=== PATIENT | female | born 1950 | race Caucasian/White ===

== ENCOUNTER 2025-04-07 14:58 | Outpatient (CLI) | payer MEDICARE, BC, SELFPAY ==
--- NOTE | 2025-04-07 15:00 | CT_ITS ---
Patient: BRIAN CAMPOS Facility:?[facility] Patient ID:?[id number] Site Patient ID:?[id number]. Site :?[id number] Study:?CT-Chest WITHOUT-04/07/2025 3:12:51 PM Ordering Physician:?CASSIDY SOTELO Final Report: INDICATION: Atypical chest pain.. TECHNIQUE: CT chest without contrast. COMPARISON: None. FINDINGS: No consolidation. Mild biapical scarring. No pulmonary edema. 6 millimeter pleural left lower lobe nodule (61). 4 millimeter pleural left lower lobe nodule (72). Other smaller nodules are noted. No pleural effusion or pneumothorax. No mediastinal or hilar lymphadenopathy. The heart is normal in size. Significant coronary calcification. Trace pericardial effusion. Motion within the aortic root. This limits evaluation. The ascending aorta is not aneurysmal. No axillary lymphadenopathy. No gross chest wall mass or significant inflammatory fat stranding. Images of the upper abdomen are unremarkable. Bone windows demonstrate no suspicious lytic or sclerotic lesion. No acute fracture. IMPRESSION: 1. Significant coronary calcification. 2. No gross acute pulmonary abnormality. 3. Pulmonary nodules measuring up to 6 millimeters. Recommend follow-up chest CT in 6 months as per Fleischner criteria. Please note that all CT scans at this facility use dose modulation, iterative reconstruction, and/or weight-based dosing when appropriate to reduce radiation dose to as low as reasonably achievable. Dictated by Jose Ahn MD @ 04/12/2025 10:43:03 AM (Electronic Signature)
== END 2025-04-07 14:59 | disposition home or self-care (01) ==
LOC: CT 15:00
PROVIDERS: PCP Family Medicine; Visit Provider Internal Medicine Pulmonary Disease
DX: R07.89 Other chest pain (principal); R91.8 Other nonspecific abnormal finding of lung field
CPT/HCPCS: 71250

== ENCOUNTER 2025-10-01 13:09 | Emergency (ER) | payer MEDICARE, BC, SELFPAY ==
--- OUTSIDE RECORDS SUMMARY | 2023-03-22 06:20 | XMS_ITS | Continuity of Care Document ---
Author Organization [facility] Address [address] [address] [place] [address] Phone Care Team Providers Care Pain Management Nurse Practitioner Name Role Phone Avinash Blackburn MD, William Laurent Unavailabl e Advance Directives Directive Yes / No Effective Date File Name No Information Encounters Encounter Description Practice Location Reason(s) For Visit Diagnoses Date Provider Providers Copied on Encounter [facility], [address] [address], [place], [place], [id number], [place] tel:[phone] [facility] No Information Avinash Thomas. [address] [facility], [facility] [address], [place], [place], [id number], [place]. tel:[phone] Family History Family Member Type Diagnosis Age At Onset No Information Payers Payer name Insurance type Covered constitution party ID Authoriza tion(s) No Information Social History Type Description Quantity Date Captured Comments Sex Female Smoking Status No Information Chief Complaint And Reason For Visit No Information Reason For Referral Reason For Referral No Information History Of Present Illness Encounter Date Complaint History Of Prese nt Illness No Information Functional Status Date Functional Assessmen t No Information Instructions Date Instruction Additional Infor mation No Information Assessments Type Assessment Date No Information Patient Care Teams Name Effective Dates (start - stop) Status Members No Information
--- OUTSIDE RECORDS SUMMARY | 2025-08-17 08:11 | XMS_ITS | Encounter Summary ---
Author Organization [facility] Address [address] [place] [address] Care Team Providers Care Supply Technician Name Role Phone Elsewhere, Pcp Primary Care Provider Unavailabl e Reason for Referral * Cardiovascular-Diagnostic (Routine) - ClosedSpecialtyDiagnoses / Procedures Referred By ContactReferred To Contact Diagnoses Pain Chest Procedures Echo Transthoracic (TTE) Helena Tate M.B.B.S., Ph.D. [address] [place] [address] Phone: tel: fax: [facility] Referral IDStatusReasonStart DateExpiration DateVisits RequestedVisits [id number]/15/202512/16/202611 WEAVER HELPER Reason for Visit * Cardiovascular-Diagnostic (Routine) - ClosedSpecialtyDiagnoses / Procedures Referred By ContactReferred To Contact Diagnoses Pain Chest Procedures Echo Transthoracic (TTE) Helena Tate M.B.B.S., Ph.D. [address] [place] [phone] Phone: tel: fax: [facility] Referral IDStatusReasonStart DateExpiration DateVisits RequestedVisits [id number]/15/202512/16/202611 Encounter Details DateTypeDepartmentCare Team (Latest Contact Info)Mksasdvyuui20/11/2025 8:11 AM WIRE WEAVER HELPER - 08/17/2025 11:59 PM CSTHospital Encounter Department of Cardiovascular Diseases in [place], [place] [address] [place] [address] Helena Tate M.B.B.S., Ph.D. [address] [place] [address] Pain Chest Discharge Disposition: Home or Self Care Social History Tobacco UseTypesPacks/DayYears UsedDateSmoking Tobacco: NeverSmokeless Tobacco: NeverAlcohol UseStandard Drinks/WeekCommentsNot Currently0 (1 standard drink = 0.6 oz pure alcohol)Hunger Vital SignAnswerDate RecordedWithin the past 12 months, you worried that your food would run out before you got the money to buy more.Never true06/20/2025Within the past 12 months, the food you bought just didn't last and you didn't have money to get more.Never true06/20/2025PRAPARE - TransportationAnswerDate RecordedIn the past 12 months, has lack of transportation kept you from medical appointments or from getting medications?No 06/20/2025In the past 12 months, has lack of transportation kept you from meetings, work, or from getting things needed for daily living?No06/20/2025HC UtilitiesAnswerDate RecordedIn the past 12 months has the electric, gas, oil, or water company threatened to shut off services in your home?No06/20/2025Housing StabilityAnswerDate RecordedWhat is your living situation today?I have a steady place to live06/20/2025CommentsUnknownSex and Gender InformationValue Date RecordedSex Assigned at IvzddJnmouz69/14/2025 1:32 PM CDTLegal SexFemale 11/08/2016 5:07 AM CSTGender CwpglqkcSdhogi88/14/2025 1:32 PM CDTSexual JjzalhrdepoGvydydwl50/14/2025 1:32 PM CDTdocumented as of this encounter Functional Status * Fall RiskQuestionAnswerDate of AssessmentAuthorHave you fallen within the last year or do you fear you might fall?No08/17/2025 8:10 AM Angle Garvey you use an assisted device to walk? (Walker, cane, wheelchair, crutch)No 08/17/2025 8:10 AM Angle Garvey, do you feel any of the following? Weak, dizzy, shaky, or unsteady?No08/17/2025 8:10 AM Angle Garvey you taken any medication within the last 6 hours which may make you feel drowsy? Such as sleep, pain, or anxiety bcybatqyfuJi58/11/2025 8:10 AM Angle Garvey documented as of this encounter Medications at Time of Discharge MedicationSigDispense QuantityRefillsLast FilledStart DateEnd Date aspirin [address] tablet Take 1 tablet (81 mg total) by mouth daily. 90 tablet calcium citrate-vitamin D3 500 mg-12.5 mcg /5 gram powder in packet Take 1 tablet by mouth 2 (two) times a day.12/29/2015 docusate sodium (Colace) 100 mg capsule Take 100 mg by mouth 3 (three) times a day.10/23/2016 lactase (Lactase Fast Acting) 9,000 Unit tablet Take 1 tablet by mouth as needed.11/22/2016 lamoTRIgine (LaMICtaL) 100 mg tablet Take 100 mg by mouth daily. 3 tablets in the a.m. and 3 tablets in the p.m. levETIRAcetam (Keppra) 500 mg tablet Take 500 mg by mouth daily. Takes 2.5 tablets in the a.m., takes 3 tablets in the p.m.10/16/2016 levothyroxine 50 mcg tablet Take 50 mcg by mouth daily.10/16/2016 multivitamin tablet Take 1 tablet by mouth daily.12/29/2015 polyethylene glycol (Miralax) 17 gram/dose oral powder Take 17 g by mouth 2 (two) times a day.10/16/2016 rosuvastatin (Crestor) 5 mg tablet Take 1 tablet (5 mg total) by mouth daily. 90 tablet traZODone (DesyreL) 100 mg tablet Take 200 mg by mouth at bedtime.03/23/2025 isosorbide mononitrate (Imdur) 30 mg 24 hr tablet Take 1 tablet (30 mg total) by mouth daily. 90 tablet 5111/03/2024documented as of this encounter Plan of Treatment Not on file documented as of this encounter Procedures Procedure NamePriorityDate/TimeAssociated DiagnosisComments(TTE) 2D ECHO DOPPLER ODXBQUgxmvlt93/11/2025 9:33 AM WIRE WEAVER HELPER Pain Chest documented in this encounter Results * (TTE) 2D ECHO DOPPLER COLOR (08/17/2025 9:33 AM WIRE WEAVER HELPER)ComponentValueRef Range Test MethodAnalysis TimePerformed AtPathologist SignatureEjection Dnwkxcvx97XJ CV EIMSSinus of Ekwooxvc57AB CV EIMSMid-Ascending Thphx85ZF CV EIMSLV Mass Wtqkp98EN CV EIMSLV End-Diastolic Fyslytlc30WG CV EIMSLV End-Systolic Diameter 31MC CV EIMSLV End-Diastolic Fmpheu494QR CV EIMSLV End-Systolic Lyhiyi60ZR CV EIMSMV E Velocity0.6MC CV EIMSMV A Velocity0.4MC CV EIMSMV E/A1.5MC CV EIMSMV e' Velocity Medial0.07MC CV EIMSMV e' Velocity Lateral0.09MC CV EIMSMV E/e' Medial8.6MC CV EIMSMV E/e' Lateral6.7MC CV EIMSLeft ventricular stroke volume axuna40KR CV EIMSCardiac Output3.46MC CV EIMSCardiac Index2.37MC CV EIMSLV Global Longitudinal Strain-21MC CV EIMSLV Interventricular Septal Wall Vontsqjxx5QB CV EIMSLV Posterior Wall Izqlkeacf1RZ CV EIMSLV Relative Wall Qxcqpoazn23RH CV EIMSTricuspid Annular S???0.14MC CV EIMSTR Vmax2.09MC CV EIMS Estimated RA Pressure (Echo RAP)5MC CV EIMSRV Systolic Pressure (with Echo RAP)22MC CV EIMSAV mean cnezpdfk0RP CV EIMSAortic valve area2.83MC CV EIMS Aortic Valve Dimensionless Index0.9MC CV EIMSLA Volume Hrcrg21ZU CV EIMSAortic Valve Systolic Peak Velocity0.9MC CV EIMSAnatomical RegionLateralityModality EchocardiographySpecimen (Source)Anatomical Location / LateralityCollection Method / VolumeCollection TimeReceived Time08/17/2025 8:30 AM WIRE WEAVER HELPER Impressions 08/17/2025 9:48 AM WIRE WEAVER HELPER There are no previous [facility] echocardiograms available for comparison. LEFT VENTRICLE:Normal left ventricular chamber size. Normal left ventricular geometry. Calculated 2-D biplane volumetric left ventricular ejection fraction of 58%. Global averaged left ventricular longitudinal peak systolic strain is normal at -21% (normal = more negative than -18%). No regional wall motion abnormalities. Normal left ventricular diastolic function. RIGHT VENTRICLE:Normal right ventricular chamber size by visual estimate. Normal right ventricular systolic function. Right ventricular systolic pressure 22 mmHg (right atrial pressure of 5 mmHg). ATRIA:Normal left atrial size. Left atrial volume index 24 ml/m2. Normal right atrial size. CARDIAC VALVES:Trileaflet aortic valve. Sclerotic aortic valve. No aortic valve regurgitation. Normal mitral valve. Trivial mitral valve regurgitation. Pulmonary valve not well visualized. Normal pulmonary valve systolic velocities. Trivial pulmonary valve regurgitation. Normal tricuspid valve. Mild tricuspid valve regurgitation. OTHER ECHO FINDINGS:Normal inferior vena cava size with normal inspiratory collapse (>50%). Normal sinus of Valsalva diameter of 34 mm. Normal mid ascending aorta diameter of 34 mm. Abdominal aorta incompletely visualized. Normal abdominal aorta Doppler flow pattern. Imaging inadequate for detection of atrial level shunt by color flow imaging. No intracardiac mass or thrombus, but the left atrial appendage cannot be visualized adequately with transthoracic echo to exclude thrombus in this location. No ?? pericardial effusion. For the complete report, see the Order-Level Documents. Narrative 08/17/2025 9:48 AM WIRE WEAVER HELPER For the complete report, see the Order-Level Documents. Hemodynamics Heart Rate: 62 BPM Blood Pressure: 147 / 75 mmHg ECG: Sinus rhythm Final Impressions 1. Normal left ventricular chamber size, no regional wall motion abnormalities, calculated 2-D biplane volumetric ejection fraction of 58%, global averaged longitudinal peak systolic strain is normalat -21% (normal = more negative than -18%). 2. Normal left ventricular geometry, normal diastolic function. 3. Normal right ventricular chamber size, normal systolic function, right ventricular systolic pressure 22 mmHg (right atrial pressure of 5 mmHg). 4. No hemodynamically significant valvular heart disease. 5. Normal ascending aorta diameter. 6. Normal inferior vena cava size with normal inspiratory collapse (>50%). 7. No ??pericardial effusion. 8. There are no previous [facility] echocardiograms available for comparison. Procedure Note Cass Amaro M.D., Pharm.D. - 08/17/2025 For the complete report, see the Order-Level Documents. Hemodynamics Heart Rate: 62 BPM Blood Pressure: 147 / 75 mmHg ECG: Sinus rhythm Final Impressions 1. Normal left ventricular chamber size, no regional wall motionabnormalities, calculated 2-D biplane volumetric ejection fraction of 58%,global averaged longitudinal peak systolic strain is normal at -21%(normal = more negative than -18%). 2. Normal left ventricular geometry, normal diastolic function. 3. Normal right ventricular chamber size, normal systolic function, right ventricular systolic pressure 22 mmHg (right atrial pressure of 5 mmHg). 4. No hemodynamically significant valvular heart disease. 5. Normal ascending aorta diameter. 6. Normal inferior vena cava size with normal inspiratory collapse(>50%). 7. No pericardial effusion. 8. There are no previous [facility] echocardiograms available forcomparison. Findings There are no previous [facility] echocardiograms available forcomparison. LEFT VENTRICLE:Normal left ventricular chamber size. Normal leftventricular geometry. Calculated 2-D biplane volumetric left ventricularejection fraction of 58%. Global averaged left ventricular longitudinalpeak systolic strain is normal at -21% (normal = more negative than -18%).No regional wall motion abnormalities. Normal left ventricular diastolicfunction. RIGHT VENTRICLE:Normal right ventricular chamber size by visual estimate.Normal right ventricular systolic function. Right ventricular systolicpressure 22 mmHg (right atrial pressure of 5 mmHg). ATRIA:Normal left atrial size. Left atrial volume index 24 ml/m2. Normalright atrial size. CARDIAC VALVES:Trileaflet aortic valve. Sclerotic aortic valve. No aorticvalve regurgitation. Normal mitral valve. Trivial mitral valveregurgitation. Pulmonary valve not well visualized. Normal pulmonary valvesystolic velocities. Trivial pulmonary valve regurgitation. Normaltricuspid valve. Mild tricuspid valve regurgitation. OTHER ECHO FINDINGS:Normal inferior vena cava size with normal inspiratory collapse (>50%). Normal sinus of Valsalva diameter of 34 mm. Normal midascending aorta diameter of 34 mm. Abdominal aorta incompletelyvisualized. Normal abdominal aorta Doppler flow pattern. Imaginginadequate for detection of atrial level shunt by color flow imaging. Nointracardiac mass or thrombus, but the left atrial appendage cannot bevisualized adequately with transthoracic echo to exclude thrombus in thislocation. No pericardial effusion. For the complete report, see the Order-Level Documents. Authorizing ProviderResult TypeResult StatusHelena Crowe, Ph.D.CV ECHO PROCEDURESFinal Result documented in this encounter Visit Diagnoses Diagnosis Pain Chest documented in this encounter Care Teams Team MemberRelationshipSpecialtyStart DateEnd Date Elsewhere, Pcp PCP - GeneralInternal Medicine06/18/25documented as of this encounter
--- OUTSIDE RECORDS SUMMARY | 2025-09-03 07:30 | XMS_ITS | Encounter Summary ---
Author Organization [facility] Address [address] [place] [address] Care Team Providers Care Sheepskin Pickler Name Role Phone Elsewhere, Pcp Primary Care Provider Unavailabl e Reason for Visit * ReasonCommentsFatigue Encounter Details DateTypeDepartmentCare Team (Latest Contact Info)Uzdcvnzxtvj52/28/2025 7:30 AM CSTNurse Only [facility] [place], [place] [address] [place] [address] Neelam Garcia, RChristyN. [address] [place] [phone] Fatigue Social History Tobacco UseTypesPacks/DayYears UsedDateSmoking Tobacco: NeverSmokeless [...] threatened to shut off services in your home?No06/20/2025 DepressionAnswerDate RecordedPHQ-9 Total Score (max 27) Housing StabilityAnswerDate RecordedWhat is your living situation today?I have a steady place to live06/20/2025CommentsUnknownSex and Gender Information ValueDate RecordedSex Assigned at XwoosXjdtdo44/14/2025 1:32 PM CDTLegal Sex Hfytqk1311/08/2016 5:07 AM CSTGender JiuscukaFvwcay27/14/2025 1:32 PM CDTSexual KpnlyciaahaTiuhxbvy46/14/2025 1:32 PM CDTdocumented as of this encounter Functional Status * PHQ-9 InterpretationAnswerDate of AssessmentAutrNone to minimal depression 09/02/2025 1:59 PM Neelam Brown R.N. * PHQ BACKGROUND SCOREAnswerDate of AssessmentAutr- 1:59 PM Neelam De Jesus, R.N. * Little interest or pleasure in doing thingsAnswerDate of AssessmentAuthor0 09/02/2025 1:59 PM Neelam Brown, R.N. * Feeling down, depressed, or hopelessAnswerDate of SipmlnocgqAddfji403/27/2025 1:59 PM Neelam Brown, R.N. * Trouble falling or staying asleep, or sleeping too muchAnswerDate of TqhoilhrcgXnwjiu075/27/2025 1:59 PM Neelam Brown, R.N. * Feeling tired or having little energyAnswerDate of RzwinasrqgXpbohp563/27/2025 1:59 PM Neelam Brown, R.N. * Poor appetite or overeatingAnswerDate of WdrkkmlqrtXdevnm651/27/2025 1:59 PM Neelam Brown, R.N. * Feeling bad about yourself - or that you are a failure or have let yourself or your family downAnswerDate of MjivpfrhtmHbkxae926/27/2025 1:59 PM Neelam Brown R.N. * Trouble concentrating on things, such as reading the newspaper or watching televisionAnswerDate of QigwxdlgquCljyxh322/27/2025 1:59 PM Neelam Brown R.N. * Moving or speaking so slowly that other people could have noticed? Or the opposite - being so fidgety or restless that you have been moving around a lot more than usualAnswerDate of IciypslrmqVgofbs040/27/2025 1:59 PM Neelam Brown R.N. * Thoughts that you would be better off or of hurting yourself in some way AnswerDate of IufwexabgkIpymad564/27/2025 1:59 PM Neelam Brown R.N. * PHQ-9 Total Score (max 27)AnswerDate of ShbkcdzsozOdmlvv773/27/2025 1:59 PM Neelam Brown R.N. * If you checked off any problems, how difficult have these problems made it for you to do your work,take care of things at home, or get along with other people?AnswerDate of AssessmentAuthorNot difficult at all09/02/2025 1:59 PM Neelam Brown R.N. * PHQ-2 ScoreAnswerDate of RgyyzknsbgVzysbt936/27/2025 1:59 PM Neelam Brown R.N. documented as of this encounter Progress Notes * Neelam Garcia R.N. - 09/03/2025 7:30 AM CST SUBJECTIVE CHIEF COMPLAINT / REASON FOR VISIT Mrs. Gutierrez is a 74 y.o. female who is alone and presents with chronic pain, fatigue, and unrefreshing sleep. This note is in collaboration with Joel Villa M.D (Chris). HISTORY OF PRESENT ILLNESS Patient reports a gradual onset of pain. Associated factors related to onset of symptoms may include exertion. She reports that she has had chest pain for years. She denies any injury. She reported that last year the chest pain has been worse. Muscle pain with exertion, walking and talking/ She used to like to swim for exercise 4 or 5 years ago, but had to stopped swimming and start walking. She reports heart pain or widespread muscle or even joint pain. She reports that the main reason she is here is for the chest discomfort with exertion. After talking, she will not be able to talk after 15minutes. She denies shortness of breath but it hurts to breathe. PAIN Patient has had complaints of pain in the past 7 days. Patient reports pain in: right shoulder, right hip/buttock, neck, and chest. She has chest pain/discomfort. Right shoulder due to overuse injuryfrom years ago. She has right sciatic pain and 2 surgeries for this in the early . It is not as bad as it was. She reports neck [pain but that is part of the radiating chest pain with exertion.And She has had pelvic floor dysfunction for years Pain has been present specific areas listed about with exertion over the past 8 years. The pain is described as intermittent with variable intensity with qualities of aching, sharpness, and radiates only the right side of her chest to throat that affects her voice and down to her abdomen that can affect bowel movements . Patient describes their pain level on a scale of 0-10 (with 0 being no pain and 10 being the worst pain imaginable) as a 2 or 3. Gradually worse over time. It is affecting morethings in her life. She can't talk to much or lifting and carrying groceries due to the weight. FATIGUE Patient reports no fatigue. Patient describes fatigue as denies. Patient rates today's fatigue level on a scale of 0-10 (with 0 being no fatigue and 10 being the worst fatigue imaginable) as a 0. Patient reports the degree of fatigue in the past week as none. Pain symptoms are aggravated by overexertion, physical activity, repetitive motion, and talking, orwalking for 15 to 20 minutes. She reported that she can not sing. OTHER FIBROMYALGIA OR CHRONIC FATIGUE ASSOCIATED SYMPTOMS The patient reports symptoms frequently experienced in the past 6 months: chest discomfort. SLEEP Patient has difficulties with sleep and reports unrefreshing sleep (reports severity as mild the past week), difficulty falling asleep, and difficulty staying asleep. Patient reports averaging 5 to 7hours of sleep nightly and lay down 30 minutes before supper and does not sleep. Patient has never had a sleep disorder consult. Patient reports the following criteria for restless legs syndrome: none of the four essential restless legs syndrome criteria. MEMORY Patient does not report difficulty with memory or concentration. Patient reports severity of cognitive symptoms of the past 7 days as none. MOOD Patient reports current stressors: chest pain main thing and it stops her from being productive around home. Patient does endorse symptoms or concerns with mood. Patient endorses symptoms of: frustration. Patient is currently diagnosed with: no diagnoses at this time. Patient is on the following mood medications: Lamictal or lamotrigine is prescribed for seizures. Current psychiatric follow-up includes: none. PHQ Score PHQ-9 Total Score (max 27): 2 PHQ Question 9: Thoughts that you would be better off or of hurting yourself in some way: Not at all Risk of suicide is not indicated. Patient reports experiencing no history of abuse or trauma. Patient currently reports feeling safe in their home. FUNCTIONAL STATUS Patient???s current functioning status: able to carry out limited activities of daily living. Patient's current employment status: retired. TREATMENTS Past treatments attempted include: relaxation, rest, heat or ice, and stretching or yoga. EXERCISE Patient has a current exercise routine, which includes stretching or walking unless her chest is irritated then she can't walk. She walks 20 to 30 minutes a most days of the week. MEDICATION HISTORY Patient has taken over the counter pain medications. Patient has previously used the following medications: trazodone or Desyrel, acetaminophen, and vitamin D3. SOCIAL HISTORY Marital Status: . Recent history of falls (past 3 months): none Caffeine use: none. The patient has family members with similar symptoms as the patient but haven't been diagnosed withfibromyalgia or chronic fatigue syndrome her father. OBJECTIVE NURSING ASSESSMENT Refer to [facility] for mood assessment. The patient has the following 2016 ACR Fibromyalgia criteria: Widespread Pain Index (0-19): 4 Number of Pain Regions (0-5): 3 Severity score (0-12): 1 FIQR (0-100): 19.33 Tender Points: 5/18 standard tender points are positive: left occiput, left trapezius, left scapular, left low cervical, left second rib. Symptoms have been present at a similar level for at least 3 months. The patient reports the following Chronic Fatigue criteria: none. ASSESSMENT / PLAN For diagnosis and treatment plan refer to provider's note. RETE WORKER documented in this encounter Plan of Treatment Not on file documented as of this encounter Visit Diagnoses Diagnosis Pain Chest- Primary documented in this encounter Additional Health Concerns AssessmentNoted TimePHQ-9 Depression Total Score: 1:59 PM CONCRETE WORKER documented as of this encounter Care Teams Team MemberRelationshipSpecialtyStart DateEnd Date Elsewhere, Pcp PCP - GeneralInternal Medicine06/18/25documented as of this encounter
--- OUTSIDE RECORDS SUMMARY | 2025-09-03 08:30 | XMS_ITS | Encounter Summary ---
Author Organization [facility] Address [address] [place] [address] Care Team Providers Care Agricultural Specialist Name Role Phone Elsewhere, Pcp Primary Care Provider Unavailabl e Reason for Visit * Outpatient (Routine) - ClosedSpecialtyDiagnoses / ProceduresReferred By ContactReferred To ContactIntegrative Medicine Diagnoses Fibromyalgia Helena Tate M.B.BChristyS., Ph.D. [address] [place] [phone] Phone: tel: fax: [facility] Referral IDStatusReasonStart DateExpiration DateVisits RequestedVisits [id number]/19/20253/ Encounter Details DateTypeDepartmentCare Team (Latest Contact Info)Lcllvbjuidp13/28/2025 8:30 AM CSTComprehensive Visit [facility] in [place], [place] [address] [place] [phone] Joel Villa M.D. [address] [place] [phone] Pain Thoracic Myofascial (Primary Dx); Other Chest Pain Social History Tobacco UseTypesPacks/DayYears UsedDateSmoking Tobacco: NeverSmokeless [...] and Gender Information ValueDate RecordedSex Assigned at OrfffIkktwc31/14/2025 1:32 PM CDTLegal Sex Cnoacu2411/08/2016 5:07 AM CSTGender IqblrzzuMwsfkx39/14/2025 1:32 PM CDTSexual BfjtjeaxipmUufhqhha59/14/2025 1:32 PM CDTdocumented as of this encounter Consult Notes * Joel Villa M.D. - 09/03/2025 8:30 AM CST REFERRAL SOURCE Helena Tate M.B.BChristyS., Ph.D. REASON FOR VISIT Fibromyalgia/chronic fatigue consultation SUBJECTIVE History of Present Illness Silvia Gutierrez is a 74-year-old female presenting for evaluation of exertional left-sided chest pain. Silvia reports left-sided chest pain that occurs exclusively with exertion, including walking and talking. Straining from BM's in the context of her pelvic floor dysfunction can also exacerbate symptoms. She also experiences throat discomfort that affects her voice after talking for about 15 minutes. The pain is rated 2-3/10 and is alleviated by rest, though it can take several days to fully resolve. She denies shortness of breath and fatigue, but notes that it hurts to breathe when the pain ispresent. She denies any widespread muscular or joint pain. There is no pain outside of exertion and the pain radiates but does not migrate. She has a history of pelvic floor dysfunction with difficulty emptying her bowels, sometimes requiring manual disimpaction, which she believes contributes to her chest and shoulder pain. She also hasa history of sciatica with 2 prior surgeries, which is not as severe as it used to be. She manages her sciatica with non-pharmacologic treatments including relaxation, rest, heat or ice, stretching, and yoga. She maintains an exercise routine of stretching and walking, aiming for 20-30 minutes most days of the week. However, she is limited by chest pain and sometimes cannot walk when her chest is irritated. She used to enjoy swimming for exercise 4-5 years ago but can no longer do so due to her symptoms. She reports poor sleep quality but wakes feeling rested and has good energy throughout the day. Shesometimes rests for about 30 minutes before supper but does not nap. She denies restless leg syndrome, memory or concentration problems, mood issues. She is frustrated by her chest pain, which limitsher productivity at home. She is retired, but not due to her symptoms. SShe was previously prescribed isosorbide mononitrate but discontinued it due to a pruritic, erythematous rash on her back. She has not tried NTG despite being recommended by cardiology as she has no Rx for this. She uses trazodone nightly for sleep, Tylenol for pain, and vitamin D supplementation. She has never used nitroglycerin. 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 She was told she did not need stents and that her symptoms were not cardiac in origin. See collaborative nursing note for full intake details. OBJECTIVE FINDINGS: Widespread Pain Index (WPI): 01/23, 12/09 pain regions Symptom Severity (SS): 10/18 Tender Points: 02/21 FIQR: 19 Results - (July) Cardiac catheterization: reviewed - Stress echocardiogram: reviewed - Overnight oximetry: Normal. - PHQ-9: 2. - GEORGES-7: 0. Assessment & Plan # Pain Thoracic Myofascial # Other Chest Pain Exertional, localized left-sided chest pain with radiation to the throat and abdomen, not consistent with fibromyalgia or costochondritis. Cardiac workup, including stress echocardiogram and angiogram, ruled out significant coronary artery disease; mild myocardial bridge noted in distal LAD. Differential includes myofascial or chest wall muscle pain versus atypical angina or small vessel disease. - Start trial of cyclobenzaprine 5 mg PO PRN for chest pain; instructed to use only when symptoms occur, not prophylactically. - Start sublingual nitroglycerin PRN for chest pain as recommended by cardiology. Did not have Rx, so Rx sent to local pharmacy for this. - Educated on potential side effects of cyclobenzaprine (sedation) and nitroglycerin (hypotension, dizziness); advised to avoid concurrent use with trazodone and to sit or lie down if lightheaded after nitroglycerin. - Advised to trial medications separately to assess efficacy; if nitroglycerin provides rapid relief, may indicate small vessel disease--if so, notify cardiology. - If cyclobenzaprine is effective, likely myofascial or muscle spasm etiology; if partial response,may consider dose increase to 10 mg. - If neither medication is effective, advised to notify - Continue follow-up with primary care as needed. 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
--- OUTSIDE RECORDS SUMMARY | 2025-10-01 13:11 | XMS_ITS | Clinical Summary ---
Author Organization [facility] Address [address] [place] [address] Care Team Providers Care Manager Meeting Name Role Phone Elsewhere, Pcp Primary Care Provider Unavailabl e Source Comments Patient records contain information from all sites at [facility]. For routine questions regarding patient records, call [phone] during business hours, M-F 8:00 AM - 5:00 PM Central Time. Record requests for emergency care only can be directed to [phone] at any time.[facility] Allergies Active AllergyReactionsCriticalityNoted UmclNmrikkudKlosqotgmzqHtem16/15/2018Peg 3350-TdxxhtbjfhgpPlunyaoKisp00/17/9804SlrihbnvmNyqi90/24/2016 Flu Like Symptoms Medications * This document contains information received from the source organization and may not represent a complete record from that organization. MedicationSigDispense QuantityRefillsLast FilledStart DateEnd DateStatus calcium citrate-vitamin D3 500 mg-12.5 mcg /5 gram powder in packet Take 1 tablet by mouth 2 (two) times a day.12/29/2015Active lactase (Lactase Fast Acting) 9,000 Unit tablet Take 1 tablet by mouth as needed.11/22/2016Active lamoTRIgine (LaMICtaL) 100 mg tablet Take 100 mg by mouth daily. 3 tablets in the a.m. and 3 tablets in the p.m. Active levETIRAcetam (Keppra) 500 mg tablet Take 500 mg by mouth daily. Takes 2.5 tablets in the a.m., takes 3 tablets in the p.m.10/16/2016Active levothyroxine 50 mcg tablet Take 50 mcg by mouth daily.10/16/2016Active multivitamin tablet Take 1 tablet by mouth daily.12/29/2015Active traZODone (DesyreL) 100 mg tablet Take 200 mg by mouth at bedtime.5Active docusate sodium (Colace) 100 mg capsule Take 100 mg by mouth 3 (three) times a day.10/23/2016Active polyethylene glycol (Miralax) 17 gram/dose oral powder Take 17 g by mouth 2 (two) times a day.10/16/2016Active rosuvastatin (Crestor) 5 mg tablet Take 1 tablet (5 mg total) by mouth daily. 90 tablet 5Active aspirin [address] tablet Take 1 tablet (81 mg total) by mouth daily. 90 tablet tive cyclobenzaprine (FlexeriL) 5 mg tablet Indications:Pain Thoracic MyofascialTake 1 tablet (5 mg total) by mouth 3 (three) times a day as needed for muscle spasms. 30 tablet 5Active nitroglycerin (Nitrostat) 0.4 mg SL tablet Indications:Pain Thoracic MyofascialPlace 1 tablet (0.4 mg total) under the tongue every 5 (five) minutes as needed for chest pain for up to 30 days. 30 tablet tive isosorbide mononitrate (Imdur) 30 mg 24 hr tablet Take 1 tablet (30 mg total) by mouth daily. 90 tablet Discontinued Active Problems ProblemNoted DateDiagnosed DatePain Chest07/16/2025 Encounters * This document contains information received from the source organization and may not represent a complete record from that organization. DateTypeDepartmentCare NsbdHhtzpvxhcxj09/06/2025Refill [facility] in [address] [address] Joel Villa M.D. Med Wfikoe5809/03/2025 8:30 AM CSTComprehensive Visit [facility] in [address] [address] Joel Villa M.D. Pain Thoracic Myofascial (Primary Dx); Other Chest Pain09/03/2025 7:30 AM CSTNurse Only [facility] [place], [place] [address] [place] [address] Neelam Garcia R.N. Sbnqepo7508/20/2025Results Follow-Up Department of Cardiovascular Medicine in [place], [place] [address] [place] [phone] Helena Tate M.B.BRonit, Ph.D. Echo Transthoracic (TTE)08/17/2025 8:11 AM MOTOR MAN - 08/17/2025 11:59 PM CSTHospital Encounter Department of Cardiovascular Diseases in [place], [place] [address] [place] [phone] Helena Tate M.B.B.S., Ph.D. Pain Chest Discharge Disposition: Home or Self Care07/19/2025 4:49 PM CDT - 07/19/2025 6:04 PM CDTSurgery Division of Cardiovascular Diseases in [place], [place] [address] [place] [phone] Davian Keith M.D. Coronary Aqngpuexyet89/13/2025 12:33 PM CDT - 07/19/2025 9:12 PM CDTHospital Encounter Division of Cardiovascular Diseases in [place], [place] [address] [place] [phone] Helena Tate M.B.B.S., Ph.D. Pain Chest Discharge Disposition: Home or Self Care07/16/2025 12:30 PM CDTDiagnostic Division of Pulmonary Medicine in [place], [place] [address] [place] [phone] Helena Tate M.B.B.S., Ph.D. Pain Chest; Atherosclerotic Heart Disease [place] Coronary Artery With Other Forms Angina Pectoris (Angina Equivalent); Gtdigpufvscz17/10/2025 11:07 AM CDT - 07/16/2025 11:59 PM CDTHospital Encounter Department of Laboratory Medicine and Pathology, [facility] in [place], [place] [address] [place] [phone] Helena Tate M.B.BCheri., Ph.D. Fibromyalgia; Pain Chest; Atherosclerotic Heart Disease [place] Coronary Artery With Other Forms Angina Pectoris (Angina Equivalent); Bradycardia; Malnutrition Severe Protein-Calorie (HCC) Discharge Disposition: Home or Self Care07/16/2025 10:15 AM CDTOffice Visit Department of Cardiovascular Medicine in [place], [place] [address] [place] [address] Helena Tate M.B.BCheri., Ph.D. Pain Chest (Primary Dx)from Last 3 Months Social History Tobacco UseTypesPacks/DayYears UsedDateSmoking Tobacco: NeverSmokeless [...] RecordedIn the past 12 months has the [employer], gas, oil, or water Profilepasser threatened to shut off services in your home?No06/20/2025 DepressionAnswerDate RecordedPHQ-9 Total Score (max 27) Housing StabilityAnswerDate RecordedWhat is your living situation today?I have a steady place to live06/20/2025CommentsUnknownSex and Gender Information ValueDate RecordedSex Assigned at OcjboTrimkc68/14/2025 1:32 PM CDTLegal Sex Fswvhz9811/08/2016 5:07 AM CSTGender RfnlcylcUxklcf21/14/2025 1:32 PM CDTSexual VozuqwekejrHawkrpno03/14/2025 1:32 PM CDT Last Filed Vital Signs Vital SignReadingTime TakenCommentsBlood Ejernkik96/4807/19/2025 8:10 PM CDT Xjaal946107/19/2025 8:10 PM OIFNhjlcwvxqqx62.7 ??C (98 ??F)07/19/2025 2:52 PM CDT Respiratory Mqkp0332 6:15 PM CDTOxygen Azrtwnzxij98%07/19/2025 8:10 PM CDTInhaled Oxygen Concentration--Ryxoij63.7 kg (100 lb 12 oz)07/19/2025 2:42 PM GUGBhyppa800.6 cm (5' 4.02)07/19/2025 2:42 PM CDTBody Mass Index17.291 2:42 PM CDT Plan of Treatment Health MaintenanceDue DateLast DoneCommentsCT Awaheltaohyr02/18/1953ologuard 1952FIT1952Hepatitis C Hbjwgxbgb87/18/1953Zoster Vaccines (2 of 3) DTaP,Tdap,and Td Vaccines (2 - Td or Tdap)11/16/2018 11/16/2008Depression Screening (Annual PHQ-2)10/07/2024OVID-19 Vaccine ( - season)/11/2021, 08/15/2021, 12/09/2020Influenza Vaccine (#1)/, 08/08/2022, 10/16/2021, Additional history exists Yszasykyp79/11/2023, 07/08/2024, 07/03/2023, Additional history exists Thyroid Stimulating Hormone (TSH) test for thyroid bkivjmbq42, 06/28/2023, 06/07/2022, Additional history jujtjlHocbvaoqlyc28/30/2026 09/05/2016, 03/21/2011 (Performed elsewhere)Colorectal Cancer Screening 09/05/2026Fasting Glucose for Diabetes Miyafnyfx265, 06/21/2025, 03/23/2025, Additional history existsPneumococcal vaccine (50+ years)Auepexabn64/16/2019, 02/24/2018Bone Density Scan (Osteoporosis Screen) Mwayxaelbdnc10/02/2024Fall Risk Screen (Annual)Mdkvantnl41/11/2025IPV Vaccines Aged OutNo longer eligible based on patient's age to complete this topic Procedures Procedure NamePriorityDate/TimeAssociated DiagnosisComments(TTE) 2D ECHO DOPPLER CRCIGPgwiazy83/11/2025 9:33 AM MOTOR MAN Pain Chest CARDIAC JCHGRKYYSHQCCLOIzkyosj90/13/2025 6:12 PM CDT Pain Chest CARDIAC CUFFANJLCWDCSSLNtmhwia34/13/2025 6:12 PM CDT Pain Chest ADULT OXYGEN ZKCUPYPJytwzxy61/13/2025 4:54 PM CDTPUL HOME OVERNIGHT OXIMETRY Ysvfmyl6007/18/2025 Pain Chest Atherosclerotic Heart Disease [place] Coronary Artery With Other Forms Angina Pectoris (Angina Equivalent) Fibromyalgia TISSUE TRANSGLUTAMINASE (TTG) AB, IGA, OIuogsdi85/10/2025 11:27 AM CDT CELIAC DISEASE SEROLOGY CASCADE, VHlvkmyt34/10/2025 11:27 AM CDT Pain Chest Atherosclerotic Heart Disease [place] Coronary Artery With Other Forms Angina Pectoris (Angina Equivalent) Fibromyalgia CORTISOL, JSjxmdie06/10/2025 11:27 AM CDT Pain Chest Atherosclerotic Heart Disease [place] Coronary Artery With Other Forms Angina Pectoris (Angina Equivalent) Fibromyalgia THYROID FUNCTION CASCADE, MImcqjrl49/10/2025 11:27 AM CDT Pain Chest Atherosclerotic Heart Disease [place] Coronary Artery With Other Forms Angina Pectoris (Angina Equivalent) Fibromyalgia DEHYDROEPIANDROSTERONE SULFATE (DHEA-S) LEVEL, UWbonhqj15/10/2025 11:27 AM CDT Pain Chest Atherosclerotic Heart Disease [place] Coronary Artery With Other Forms Angina Pectoris (Angina Equivalent) Fibromyalgia FERRITIN, ZKmclyuv71/10/2025 11:27 AM CDT Pain Chest Atherosclerotic Heart Disease [place] Coronary Artery With Other Forms Angina Pectoris (Angina Equivalent) Fibromyalgia Bradycardia CONNECTIVE TISSUE DISEASE CASCADE, MARA, DFnvfxyg39/10/2025 11:27 AM CDT Pain Chest Atherosclerotic Heart Disease [place] Coronary Artery With Other Forms Angina Pectoris (Angina Equivalent) Fibromyalgia COMPREHENSIVE METABOLIC PANEL, S/UJcncpxy74/10/2025 11:27 AM CDT Pain Chest Atherosclerotic Heart Disease [place] Coronary Artery With Other Forms Angina Pectoris (Angina Equivalent) Fibromyalgia CBC WITH DIFFERENTIAL, PLsmadpr28/10/2025 11:27 AM CDT Pain Chest Atherosclerotic Heart Disease [place] Coronary Artery With Other Forms Angina Pectoris (Angina Equivalent) Fibromyalgia 25-HYDROXYVITAMIN D2 AND D3, ETupvmxx36/10/2025 11:27 AM CDT Fibromyalgia RHEUMATOID FACTOR, S/KAsspphg29/10/2025 11:27 AM CDT Fibromyalgia CREATINE KINASE (CK), UGyjcznx58/10/2025 11:27 AM CDT Fibromyalgia C-REACTIVE PROTEIN (CRP), S/FNdpjbyg76/10/2025 11:27 AM CDT Fibromyalgia SEDIMENTATION RATE, XRshyvit88/10/2025 11:27 AM CDT Fibromyalgia from Last 3 Months Results * (TTE) 2D ECHO DOPPLER COLOR (08/17/2025 9:33 AM MOTOR MAN)ComponentValueRef Range Test MethodAnalysis TimePerformed AtPathologist SignatureEjection Peznahmg06IE CV EIMSSinus of Bimlalli78WG CV EIMSMid-Ascending Rjcbp90CW CV EIMSLV Mass Nayzd61NP CV EIMSLV End-Diastolic Uuzotglo02NM CV EIMSLV End-Systolic Diameter 31MC CV EIMSLV End-Diastolic Mtvecv999IF CV EIMSLV End-Systolic Lgrnkt25ON CV EIMSMV E Velocity0.6MC CV EIMSMV A Velocity0.4MC CV EIMSMV E/A1.5MC CV EIMSMV e' Velocity Medial0.07MC CV EIMSMV e' Velocity Lateral0.09MC CV EIMSMV E/e' Medial8.6MC CV EIMSMV E/e' Lateral6.7MC CV EIMSLeft ventricular stroke volume bivqu45OG CV EIMSCardiac Output3.46MC CV EIMSCardiac Index2.37MC CV EIMSLV Global Longitudinal Strain-21MC CV EIMSLV Interventricular Septal Wall Gsckrssxh2MN CV EIMSLV Posterior Wall Wuwwobhbf6CI CV EIMSLV Relative Wall Jybxfoyyy89XA CV EIMSTricuspid Annular S???0.14MC CV EIMSTR Vmax2.09MC CV EIMS Estimated RA Pressure (Echo RAP)5MC CV EIMSRV Systolic Pressure (with Echo RAP)22MC CV EIMSAV mean nkpwxpma5HI CV EIMSAortic valve area2.83MC CV EIMS Aortic Valve Dimensionless Index0.9MC CV EIMSLA Volume Gcejn44AA CV EIMSAortic Valve Systolic Peak Velocity0.9MC CV EIMSAnatomical RegionLateralityModality EchocardiographySpecimen (Source)Anatomical Location / LateralityCollection Method / VolumeCollection TimeReceived Time08/17/2025 8:30 AM MOTOR MAN Impressions 08/17/2025 9:48 AM MOTOR MAN There are no previous [facility] echocardiograms available for comparison. LEFT VENTRICLE:Normal left [...] the Order-Level Documents. Narrative 08/17/2025 9:48 AM MOTOR MAN For the complete report, see the Order-Level [...] ??pericardial effusion. 8. There are no previous [facility] echocardiograms available for comparison. Procedure Note Cass [...] pericardial effusion. 8. There are no previous [facility] echocardiograms available forcomparison. Findings There are no previous [facility] echocardiograms available forcomparison. LEFT VENTRICLE:Normal left ventricular [...] TypeResult StatusHelena Crowe, Ph.D.CV ECHO PROCEDURESFinal Result * CORONARY ANGIOGRAPHY, IFR (07/19/2025 6:12 PM CDT)Anatomical RegionLaterality ModalityX-Ray AngiographySpecimen (Source)Anatomical Location / Laterality Collection Method / VolumeCollection TimeReceived Time07/19/2025 5:13 PM CDT Narrative 07/19/2025 6:26 PM CDT For the complete report, see the Order-Level Documents. PROCEDURE TYPES 1. ??CORONARY ANGIOGRAPHY ?? 2. ??INSTANTANEOUS FLOW RESERVE ?? FINAL DIAGNOSIS 1. ??Moderate coronary artery atherosclerosis ?? 2. ??Normal instantaneous wave-free ratio (iFR). Mid LAD, D1 and prox RCA ?? 3. ??Mild coronary artery myocardial bridge ?? PRE-PROCEDURE DIAGNOSIS 1. ??Pain Chest ?? CORONARY DIAGNOSTIC SUMMARY Coronary artery dominance is right. Normal left main coronary. ?? The proximal left anterior descending artery is 20% obstructed by a discrete lesion. ?? The middle left anterior descending artery is 40% obstructed by a discrete lesion and 50% obstructed by a discrete lesion. The distal segment is normal size, diseased. ?? The first diagonal branch is 60% obstructed by a discrete lesion. The distal segment is normal size, diseased. ?? The distal circumflex artery is 20% obstructed by a discrete lesion. The distal segment is normal size. ?? The proximal right coronary artery is 30% obstructed by diffuse disease. The distal segment is normal size, diseased. ?? Mild bridging distal LAD INTRACORONARY PRESSURE SUMMARY An intracoronary pressure study of the Middle Left Anterior Descending Artery was performed. iFR measurement is 0.96. No complications. An intracoronary pressure study of the Middle Left Anterior Descending Artery was performed. iFR measurement is 0.95. No complications. An intracoronary pressure study of the Middle Left Anterior Descending Artery was performed. iFR measurement is 0.95. No complications. An intracoronary pressure study of the First Diagonal Branch was performed. iFR measurement is 0.92. No complications. An intracoronary pressure study of the First Diagonal Branch was performed. iFR measurement is 0.94. iFR assessment is Normal. No complications. An intracoronary pressure study of the Proximal Right Coronary Artery was performed. iFR measurement is 1.01. No complications. RADIATION DOSE DATA Procedure cumulative skin dose (mGy): 113.35 Procedure cumulative dose area product (Gy-cm2): 7.31 Fluoro Time (Min): 12.64 CONTRAST DOSE DATA iohexoL 350 mg iodine/mL solution (Omnipaque): 120mL For the complete report, see the Order-Level Documents. Procedure Note Davian Keith M.D. - 07/19/2025 For the complete report, see the Order-Level Documents. PROCEDURE TYPES 1. CORONARY ANGIOGRAPHY 2. INSTANTANEOUS FLOW RESERVE FINAL DIAGNOSIS 1. Moderate coronary artery atherosclerosis 2. Normal instantaneous wave-free ratio (iFR). Mid LAD, D1 and prox RCA 3. Mild coronary artery myocardial bridge PRE-PROCEDURE DIAGNOSIS 1. Pain Chest CORONARY DIAGNOSTIC SUMMARY Coronary artery dominance is right. Normal left main coronary. The proximal left anterior descending artery is 20% obstructed by adiscrete lesion. The middle left anterior descending artery is 40% obstructed by a discretelesion and 50% obstructed by a discrete lesion. The distal segment isnormal size, diseased. The first diagonal branch is 60% obstructed by a discrete lesion. Thedistal segment is normal size, diseased. The distal circumflex artery is 20% obstructed by a discrete lesion. Thedistal segment is normal size. The proximal right coronary artery is 30% obstructed by diffuse disease.The distal segment is normal size, diseased. Mild bridging distal LAD INTRACORONARY PRESSURE SUMMARY An intracoronary pressure study of the Middle Left Anterior DescendingArtery was performed. iFR measurement is 0.96. No complications. An intracoronary pressure study of the Middle Left Anterior DescendingArtery was performed. iFR measurement is 0.95. No complications. An intracoronary pressure study of the Middle Left Anterior DescendingArtery was performed. iFR measurement is 0.95. No complications. An intracoronary pressure study of the First Diagonal Branch wasperformed. iFR measurement is 0.92. No complications. An intracoronary pressure study of the First Diagonal Branch wasperformed. iFR measurement is 0.94. iFR assessment is Normal. Nocomplications. An intracoronary pressure study of the Proximal Right Coronary Artery was performed. iFR measurement is 1.01. No complications. RADIATION DOSE DATA Procedure cumulative skin dose (mGy): 113.35 Procedure cumulative dose area product (Gy-cm2): 7.31 Fluoro Time (Min): 12.64 CONTRAST DOSE DATA iohexoL 350 mg iodine/mL solution (Omnipaque): 120mL For the complete report, see the Order-Level Documents. Authorizing ProviderResult TypeResult StatusHelena Crowe, Ph.D.CV CARDIAC CATH PROCEDURESEdited Result - Final * Home Overnight Oximetry (07/18/2025)Specimen (Source)Anatomical Location / LateralityCollection Method / VolumeCollection TimeReceived Time07/18/2025 Narrative [facility] - 07/19/2025 1:58 PM CDT Procedure: Overnight oximetry was performed on room air. The patient stated they did not consume alcohol and did not take sedative medication on the night of the study, and stated quality of sleep was worse than usual. [place] Sleepiness Scale was 1. The time spent <89% was 0 minutes, with a 4% desaturation index of 0. Impression: Normal study. Authorizing ProviderResult TypeResult Fred Crowe, Ph.D.PFT ORDERABLESFinal ResultPerforming OrganizationAddressCity/State/ZIP CodePhone Number [facility] * Thyroid Function [place] (07/16/2025 11:27 AM CDT)ComponentValueRef RangeTest MethodAnalysis TimePerformed AtPathologist SignatureTSH, Sensitive0.80.3 - 4.2 mIU/L1 12:59 PM CDTDTLSpecimen (Source)Anatomical Location / LateralityCollection Method / VolumeCollection TimeReceived TimeBlood (Blood, Venous)07/16/2025 11:27 AM CDT1 11:49 AM CDT Narrative Authorizing ProviderResult TypeResult Fred Crowe, Ph.D.LAB BLOOD ADD-ONFinal ResultPerforming OrganizationAddressCity/State/ZIP CodePhone Number [facility] [address] [place] [address], [facility] [address] [place] [address] * Celiac Disease Serology [place] (07/16/2025 11:27 AM CDT)ComponentValueRef RangeTest MethodAnalysis TimePerformed AtPathologist SignatureImmunoglobulin A (IgA), Z12659 - 356 mg/dL07/16/2025 5:35 PM CDTSDSCCeliac Disease InterpretationSee Comment: Negative serology. Celiac disease unlikely. However, approximately 10% of patients with celiac disease are seronegative. Also, patients who are already adhering to a gluten-free diet may be seronegative. If celiac disease is highly clinically suspected, consider HLA-DQ typing. 07/19/2025 11:18 PM CDTSDSCSpecimen (Source)Anatomical Location / Laterality Collection Method / VolumeCollection TimeReceived TimeBlood (Blood, Venous) 07/16/2025 11:27 AM CDT1 3:03 PM CDT Narrative [facility] - 07/19/2025 11:18 PM CDT Specimen Information: Specimen ID: [id number] Specimen Type: Blood Specimen Collection Start Date: 07/16/2025 11:27 AM Specimen Received Date: 07/16/2025 ??3:03 PM Specimen ID: [id number] Specimen Type: Blood Specimen Collection Start Date: 07/16/2025 11:27 AM Specimen Received Date: 07/16/2025 ??3:45 PM Authorizing ProviderResult TypeResult Fred Crowe, Ph.D.LAB BLOOD ADD-ONFinal ResultPerforming OrganizationAddressCity/State/ZIP CodePhone Number [facility] [address] [place], [place] [phone] [place] [address] [place] [address] [address] [place], [place] [phone] [place] [address] DR[address] [place]CG[place] [address] [place] [address] [place] [address] * tTG (Tissue Transglutaminase), Antibody, IgA (07/16/2025 11:27 AM CDT) ComponentValueRef RangeTest MethodAnalysis TimePerformed AtPathologist SignatureTissue Transglutaminase Ab, IgA, S<1.2<4.0 (Negative) U/mL07/17/2025 12:37 PM CDTSDSCSpecimen (Source)Anatomical Location / LateralityCollection Method / VolumeCollection TimeReceived KuavYzkui40/10/2025 11:27 AM CDT 07/16/2025 7:01 PM CDT Narrative Authorizing ProviderResult TypeResult Fred Crowe, Ph.D.LAB BLOOD ADD-ONFinal ResultPerforming OrganizationAddressCity/State/ZIP CodePhone Number [facility] [address] [place] [address] [facility] [address] [place] [address] * Connective Tissue Diseases [place] (07/16/2025 11:27 AM CDT)ComponentValueRef RangeTest MethodAnalysis TimePerformed AtPathologist SignatureAntinuclear Ab, S0.2<=1.0 (Negative) U1 1:25 PM CDTSDSCComment: ----ADDITIONAL INFORMATION---- Method: Enzyme-linked immunoassay using HEp-2 nuclear extract supplemented with purified antigens. Cyclic Citrullinated Peptide Ab, S<15.6<20.0 (Negative) 07/17/2025 12:29 PM CDT SDSCComment: Interpretation: Antibodies to CCP not detected. If clinical symptoms are strongly indicative for rheumatoid arthritis, suggest testing for Rheumatoid Factor, S (RHUT) and, if positive, Rheumatoid Factor Panel, S (RFPN), which includes differentiation of rheumatoid factor IgM and IgA isotypes. InterpretationSEE NPYBXUR3107/17/2025 1:25 PM CDTSDSCComment: Tests for antibodies to dsDNA and MILAN antigens are not performed automatically unless the NIKHIL result is > or = 3.0 U. ??Studies performed at [facility] indicate that positive NIKHIL results <3.0 U are rarely accompanied by positive second order tests. Specimen (Source)Anatomical Location / LateralityCollection Method / Volume Collection TimeReceived TimeBlood (Blood, Venous)07/16/2025 11:27 AM CDT 07/16/2025 4:11 PM CDT Narrative Authorizing ProviderResult TypeResult StatusHelena SweeneyBRonit, Ph.D.LAB BLOOD ADD-ONFinal ResultPerforming OrganizationAddressCity/State/ZIP CodePhone Number [facility] [address] [place] [address] [facility] [address] [place] [address] * 25-Hydroxyvitamin D2 and D3 (07/16/2025 11:27 AM CDT)ComponentValueRef Range Test MethodAnalysis TimePerformed AtPathologist Nqjudenie56-Twjcmff D2<4.0 ng/mL07/20/2025 11:59 AM JOGNKJH92-Iebmzub D377ng/mL07/20/2025 11:59 AM CDT LWPN81-Jtkuoei D Qolml20qn/mL07/20/2025 11:59 AM CDTSDSCComment: Interpretation: 51-80 ng/mL (increased risk of hypercalciuria) ----REFERENCE VALUE---- 25-HYDROXY D TOTAL (D2+D3) Optimum levels in the healthy population are 20-50. ----ADDITIONAL INFORMATION---- This test was developed and its performance characteristics determined by [facility] in a manner consistent with CLIA requirements. This test has not been cleared or approved by the U.S. Food and Drug Administration. Specimen (Source)Anatomical Location / LateralityCollection Method / Volume Collection TimeReceived TimeBlood (Blood, Venous)07/16/2025 11:27 AM CDT 07/19/2025 7:41 AM CDT Narrative Authorizing ProviderResult TypeResult Fred Crowe, Ph.D.LAB BLOOD ADD-ONFinal ResultPerforming OrganizationAddressCity/[facility]/ZIP CodePhone Number [facility] [address] [place] [address] [facility] [address] [place] [address] DR[address] [place] [address] [place] [address] * Dehydroepiandrosterone Sulfate (DHEA-S) (07/16/2025 11:27 AM CDT)Component ValueRef RangeTest MethodAnalysis TimePerformed AtPathologist Signature Dehydroepiandrosterone Sulfate, S415.3 - 124 mcg/dL07/16/2025 3:30 PM CDTSJOHN [facility]OR[facility] Specimen (Source)Anatomical Location / LateralityCollection Method / Volume Collection TimeReceived TimeBlood (Blood, Venous)07/16/2025 11:27 AM CDT 07/16/2025 2:26 PM CDT Narrative Authorizing ProviderResult TypeResult Fred Crowe, Ph.D.LAB BLOOD ADD-ONFinal ResultPerforming OrganizationAddressCity/State/ZIP CodePhone Number [facility] [address] [place] [address] [facility] [address] [place] [address] * Sedimentation Rate (07/16/2025 11:27 AM CDT)ComponentValueRef RangeTest Method Analysis TimePerformed AtPathologist SignatureSedimentation Rate, B63 - 28 mm/h1 12:42 PM CDTDTLSpecimen (Source)Anatomical Location / LateralityCollection Method / VolumeCollection TimeReceived TimeBlood (Blood, Venous)07/16/2025 11:27 AM CDT1 11:49 AM CDT Narrative Authorizing ProviderResult TypeResult StatusHelena Crowe, Ph.D.LAB BLOOD ADD-ONFinal ResultPerforming OrganizationAddressCity/State/ZIP CodePhone Number [facility] [address] [place] [address], [facility] DTL [facility] [address] [place] [address] * CBC with Differential, Blood (07/16/2025 11:27 AM CDT)ComponentValueRef Range Test MethodAnalysis TimePerformed AtPathologist KbewolcvfZqjpongvnq99.611.6 - 15.0 g/dL07/16/2025 12:00 PM FTZIUUTffygorgqe27.835.5 - 44.9 %07/16/2025 12:00 PM CDTDTLErythrocytes4.123.92 - 5.13 x10(12)/L1 12:00 PM CDTDTLMCV 96.678.2 - 97.9 fL07/16/2025 12:00 PM CDTDTLRBC Distrib Width12.512.2 - 16.1 % 07/16/2025 12:00 PM CDTDTLPlatelet Kyrfe607922 - 371 x10(9)/L1 12:00 PM CDTDTLLeukocytes6.23.4 - 9.6 x10(9)/L1 12:00 PM CDTDTLNeutrophils 4.411.56 - 6.45 x10(9)/L1 12:00 PM CDTDHPMLymphocytes1.050.95 - 3.07 x10(9)/L1 12:00 PM CDTDTLMonocytes0.430.26 - 0.81 x10(9)/L1 12:00 PM CDTDTLEosinophils0.210.03 - 0.48 x10(9)/L1 12:00 PM CDTDTL Basophils0.050.01 - 0.08 x10(9)/L1 12:00 PM CDTDTLSpecimen (Source) Anatomical Location / LateralityCollection Method / VolumeCollection Time Received TimeBlood (Blood, Venous)07/16/2025 11:27 AM CDT1 11:49 AM CDT Narrative Authorizing ProviderResult TypeResult Fred Crowe, Ph.D.LAB BLOOD ADD-ONFinal ResultPerforming OrganizationAddressCity/State/ZIP CodePhone Number [facility] [address] [place] [address], [facility] [address] [place], [place] [id number] [place] [address] [address] [place] [address] * Rheumatoid Factor (07/16/2025 11:27 AM CDT)ComponentValueRef RangeTest Method Analysis TimePerformed AtPathologist SignatureRheumatoid Factor, S<15<15 IU/mL 07/16/2025 3:12 PM CDTSDSCSpecimen (Source)Anatomical Location / Laterality Collection Method / VolumeCollection TimeReceived TimeBlood (Blood, Venous) 07/16/2025 11:27 AM CDT1 2:30 PM CDT Narrative Authorizing ProviderResult TypeResult Fred Crowe, Ph.D.LAB BLOOD ADD-ONFinal ResultPerforming OrganizationAddressCity/State/ZIP CodePhone Number [facility] [address] [place] [address] [facility] [address] [place] [address] * CRP (C-Reactive Protein) (07/16/2025 11:27 AM CDT)ComponentValueRef RangeTest MethodAnalysis TimePerformed AtPathologist SignatureC-Reactive Protein (CRP), S<3.0<5.0 mg/L1 12:59 PM CDTDTLSpecimen (Source)Anatomical Location / LateralityCollection Method / VolumeCollection TimeReceived TimeBlood (Blood, Venous)07/16/2025 11:27 AM CDT1 11:49 AM CDT Narrative Authorizing ProviderResult TypeResult Fred Crowe, Ph.D.LAB BLOOD ADD-ONFinal ResultPerforming OrganizationAddressCity/State/ZIP CodePhone Number [facility] [address] [place] [address], [place] [address] * Ferritin (07/16/2025 11:27 AM CDT)ComponentValueRef RangeTest MethodAnalysis TimePerformed AtPathologist SignatureFerritin, A22830 - 328 mcg/L1 12:59 PM CDTDTLSpecimen (Source)Anatomical Location / LateralityCollection Method / VolumeCollection TimeReceived TimeBlood (Blood, Venous)07/16/2025 11:27 AM CDT1 11:49 AM CDT Narrative Authorizing ProviderResult TypeResult Fred Crowe, Ph.D.LAB BLOOD ADD-ONFinal ResultPerforming OrganizationAddressCity/State/ZIP CodePhone Number [facility] [address] [place] [address], [place] [address] * CK (Creatine Kinase) (07/16/2025 11:27 AM CDT)ComponentValueRef RangeTest MethodAnalysis TimePerformed AtPathologist SignatureCreatine Kinase (CK), S114 26 - 192 U/L1 12:59 PM CDTDTLSpecimen (Source)Anatomical Location / LateralityCollection Method / VolumeCollection TimeReceived TimeBlood (Blood, Venous)07/16/2025 11:27 AM CDT1 11:49 AM CDT Narrative Authorizing ProviderResult TypeResult StatusHelena Crowe, Ph.D.LAB BLOOD ADD-ONFinal ResultPerforming OrganizationAddressCity/State/ZIP CodePhone Number [address] [address], [address] [address] * Cortisol (07/16/2025 11:27 AM CDT)ComponentValueRef RangeTest MethodAnalysis TimePerformed AtPathologist SignatureCortisol, Random, S9.8mcg/dL07/16/2025 12:59 PM CDTDTLComment: ----REFERENCE VALUE---- AM ([id number]): 4.8-20 PM ([id number]): 2.5-12 Specimen (Source)Anatomical Location / LateralityCollection Method / Volume Collection TimeReceived TimeBlood (Blood, Venous)07/16/2025 11:27 AM CDT 07/16/2025 11:49 AM CDT Narrative Authorizing ProviderResult TypeResult Fred Crowe, Ph.D.LAB BLOOD ADD-ONFinal ResultPerforming OrganizationAddressCity/State/ZIP CodePhone Number [address] [address], [address] [address] * (ABNORMAL) Comprehensive Metabolic Panel (07/16/2025 11:27 AM CDT)Component ValueRef RangeTest MethodAnalysis TimePerformed AtPathologist Signature Potassium, S4.63.6 - 5.2 mmol/L1 12:59 PM CDTDTLSodium, K841413 - 145 mmol/L1 12:59 PM CDTDTLChloride, G97580 - 107 mmol/L1 12:59 PM CDTDTLBicarbonate, S31(H)22 - 29 mmol/L1 12:59 PM CDTDTLAnion Gap9 7 - 151 12:59 PM CDTDTLBUN (Blood Urea Nitrogen), S176 - 21 mg/dL 07/16/2025 12:59 PM CDTDTLCreatinine0.830.59 - 1.04 mg/dL07/16/2025 12:59 PM CDTDTLEstimated GFR (eGFR)75>=60 mL/min/BSA07/16/2025 12:59 PM CDTDTLComment: Estimated GFR calculated using the 2020 CKD_EPI creatinine equation. Calcium, Total, S9.78.8 - 10.2 mg/dL07/16/2025 12:59 PM CDTDTLGlucose, S8770 - 140 mg/dL07/16/2025 12:59 PM CDTDTLProtein, Total, S6.66.3 - 7.9 g/dL07/16/2025 12:59 PM CDTDTLAlbumin, S4.73.5 - 5.0 g/dL07/16/2025 12:59 PM CDTDTLAspartate Aminotransferase (AST), S248 - 43 U/L1 12:59 PM CDTDTLAlkaline Phosphatase, S5035 - 104 U/L1 12:59 PM CDTDTLAlanine Aminotransferase (ALT), S227 - 45 U/L1 12:59 PM CDTDTLBilirubin, Total, S0.30.0 - 1.2 mg/dL07/16/2025 12:59 PM CDTDTLSpecimen (Source)Anatomical Location / Laterality Collection Method / VolumeCollection TimeReceived TimeBlood (Blood, Venous) 07/16/2025 11:27 AM CDT1 11:49 AM CDT Narrative Authorizing ProviderResult TypeResult StatusHelena Crowe, Ph.D.LAB BLOOD ADD-ONFinal ResultPerforming OrganizationAddressCity/State/ZIP CodePhone Number [facility] [address] [place] [address], [place] DTL [facility] [address] [place] [address] from Last 3 Months Insurance * Guarantor: Silvia Gutierrez TypeRelation to PatientDate of BirthPhone Billing AddressPersonal/JbjqulZxry93/18/1951 [address] [place] [address] Care Teams Team MemberRelationshipSpecialtyStart DateEnd Date Elsewhere, Pcp PCP - GeneralInternal Medicine06/18/25
--- OUTSIDE RECORDS SUMMARY | 2025-10-01 13:11 | XMS_ITS | Encounter Summary ---
Author Organization [facility] Address [address] [place] [address] Care Team Providers Care Informatics Consultant Name Role Phone Elsewhere, Pcp Primary Care Provider Unavailabl e Encounter Details DateTypeDepartmentCare Team (Latest Contact Info)Aiyqaujvekr00/14/2025Results Follow-Up Department of Cardiovascular Medicine in [place], [place] [address] [place] [phone] Helena Tate M.B.BChristyS., Ph.D. [address] [place] [address] Echo Transthoracic (TTE) Social History Tobacco UseTypesPacks/DayYears UsedDateSmoking Tobacco: NeverSmokeless [...] and Gender Information ValueDate RecordedSex Assigned at KlnmoFmqvfg94/14/2025 1:32 PM CDTLegal Sex Fzcncd6311/08/2016 5:07 AM CSTGender NvxhnzzrJlgcnb26/14/2025 1:32 PM CDTSexual KiberjguqwdUxhxbfyo93/14/2025 1:32 PM CDTdocumented as of this encounter Plan of Treatment Not on file documented as of this encounter Visit Diagnoses Not on filedocumented in this encounter Care Teams Team MemberRelationshipSpecialtyStart DateEnd Date Elsewhere, Pcp PCP - GeneralInternal Medicine06/18/25documented as of this encounter
--- OUTSIDE RECORDS SUMMARY | 2025-10-01 13:11 | XMS_ITS | Encounter Summary ---
Author Organization [facility] Address [address] [place] [address] Care Team Providers Care Drum Saw Operator Name Role Phone Elsewhere, Pcp Primary Care Provider Unavailabl e Reason for Visit * ReasonCommentsMed Refill Encounter Details DateTypeDepartmentCare Team (Latest Contact Info)Gnuhduklfgi04/06/2025Refill [facility] [place], [place] [address] [place] [address] Joel Villa M.D. [address] [place] [address] Med Refill Social History Tobacco UseTypesPacks/DayYears UsedDateSmoking Tobacco: NeverSmokeless [...] and Gender Information ValueDate RecordedSex Assigned at DtttwUlqwyh50/14/2025 1:32 PM CDTLegal Sex Xhqkav7811/08/2016 5:07 AM CSTGender RxzmsxylIqgeeu05/14/2025 1:32 PM CDTSexual OhnopnbzuufGbdxvpoh26/14/2025 1:32 PM CDTdocumented as of this encounter Plan of Treatment Not on file documented as of this encounter Visit Diagnoses Diagnosis Pain Thoracic Myofascial documented in this encounter Additional Health Concerns AssessmentNoted TimePHQ-9 Depression Total Score: 1:59 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
--- OUTSIDE RECORDS SUMMARY | 2025-10-01 13:11 | XMS_ITS | Clinical Summary ---
Author Organization [facility] Address [address] [place] [address] Care Team Providers Care Materials Planner Name Role Phone Shivani Finley MD Primary Care Provide r Christiano Russell MD Unavailable [phone] Allergies Active AllergyReactionsCriticalityNoted DateCommentsPhenytoinRashPeg 3350-HqotnkllsqugGgyqxwhpOfxa85/17/1057NazltjrxyhzKytm05/15/2018 Medications MedicationSigDispense QuantityRefillsLast FilledStart DateEnd DateStatus docusate (COLACE) 100 mg capsule Take 1 capsule by mouth 2 times daily.Active calcium citrate-vitamin d 315 mg-200 unit (CALCIUM CITRATE + D) 315-200 mg-unit tablet Take 1 tablet by mouth 2 times daily with meals.Active polyethylene glycol (MIRALAX; GLYCOLAX) 17 g powder for solution Take 17 g by mouth.Active traZODone 100 mg tablet Indications:Insomnia, unspecified typeTAKE 2 TABLETS(200 MG) BY MOUTH AT BEDTIME 180 Tablet 5Active levETIRAcetam 500 mg tablet Indications:Seizure disorder (HC),Convulsions, unspecified convulsion type (HC) TAKE 2.5 TABLETS BY MOUTH EVERY MORNING AND TAKE 3 TABLETS EVERY EVENING 540 Tablet 5Active lamoTRIgine 100 mg tablet Indications:Seizure disorder (HC),Convulsions, unspecified convulsion type (HC) TAKE 3 TABLETS BY MOUTH AT NOON AND TAKE 3 TABLETS AT NIGHT 540 Tablet 5Active levothyroxine 50 mcg tablet Indications:Acquired hypothyroidismTake 1 Tablet (50 mcg) by mouth once daily. 90 Tablet 5Active albuterol HFA 90 mcg/actuation inhaler Indications:Mild persistent asthma, unspecified whether complicated (HC)Inhale 2 Puffs by mouth 4 times daily if needed for Shortness Of Breath. 1 Each 5Active celecoxib 200 mg capsule Indications:Atypical chest painTake 1 Capsule (200 mg) by mouth once daily with a meal. 30 Capsule 5Active Active Problems ProblemNoted DateDiagnosed DateMixed obsessional thoughts and acts12/21/2020 Seizure mwaaaslx64/11/2019History of colon avfifj5609/05/2016 Overview (09/05/2016): Colonoscopy 08/2016 normal repeat in 5 years with adult scope Low body weight due to inadequate caloric ayejkq8103/27/2016Lumbar right L4-5 disc acgygucbae36/27/2749B3-0 DDD05/06/2014H/O Lumbar L4-5 and L5-S1 laminectomy 05/06/2014Pelvic floor uylshkphebm54/15/2013 Overview (10/21/2012): Long standing. Evaluation at [facility] clinic. Recommend biofeedback. Vyyygxo4510/21/2012Osteoporosis, hhtarlykhky26/23/2008Unspecified hypothyroidism Other convulsionsIrritable bowel syndromeIntestinal disaccharidase deficiencies and disaccharide malabsorption Overview (02/11/2007): Lactose intolerence Resolved Problems ProblemNoted DateDiagnosed DateResolved DateLow body weight due to inadequate caloric Encounters DateTypeDepartmentCare UmphYczyvmiczkx49/22/2025 9:20 AM CSTOffice Visit [facility] [address] [place] [address] Vincent Ocampo MD Musculoskeletal Problem (Consult right shoulder pain )09/27/2025Travelfrom Last 3 Months Immunizations ImmunizationAdministration DatesNext DueCOVID-19 vaccine (Javi-J&J) ROBINSON MCKEON 12/09/2020Influenza, High-dose Quadrivalent Haefmmhzfrx54/10/2022,09/17/2020 Influenza, IIV3 (Age >=3 years)07/25/2005Influenza, SOT771Influenza, Inactivated AIIV4 (Age 65+ Years) Preserv Free11/20/2023,08/08/2022Influenza, Inactivated IIV3 (Age 65+ Years) Preserv Free09/21/2019Pneumococcal Poly,23- Valent (Pneumovax)09/21/2019Pneumococcal conj 13-Valent (Prevnar 13)02/24/2018Td (Age >=7 Years)12/09/1995Tdap11/16/2008Zoster (Zostavax-ZVL, live)10/04/2017 Family History Medical HistoryRelationNameCommentsHeart DiseaseBrother 1A-FibOtherBrother 2h/o brain injuryStrokeFatherCancer-breastMaternal AuntPsychiatric illnessMother alzheimersCancer-ovarianNo Family HistoryRelationNameStatusCommentsBrother 1 Brother 2FatherAliveMaternal AuntMotherDeceased (Age 89)broken hip Social History Tobacco UseTypesPacks/DayYears UsedDateSmoking Tobacco: NeverSmokeless Tobacco: Never Tobacco Cessation:Counseling Given: No Alcohol UseStandard Drinks/WeekCommentsNo0 (1 standard drink = 0.6 oz pure alcohol)PHQ-2AnswerDate RecordedPHQ-2 TOTAL UXWDI502Social Connections AnswerDate RecordedDo you often feel lonely or isolated from those around you?0 06/25/2024Financial Resource StrainAnswerDate RecordedDifficulty of Paying Living Fgsygqjc679ifficulty of Paying Living ExpensesNot on file 06/25/2024Food InsecurityAnswerDate RecordedDo you worry your food will run out before you are able to buy more?Transportation NeedsAnswerDate RecordedDoes lack of transportation keep you from medical appointments?1 06/25/2024oes lack of transportation keep you from work, meetings or getting things that you need?Housing StabilityAnswerDate RecordedWhat is your housing situation today?UtilitiesAnswerDate RecordedDo you have trouble paying for utilities (for example, heat, electricity, water, phone)?1 06/25/2024CommentsNoSex and Gender InformationValueDate RecordedSex Assigned at BirthNot on fileLegal BscRzzrxy00/14/2013 5:24 AM CSTGender Identity Not on fileSexual OrientationNot on fileOccupationIndustryJob Start DateJob End Dateteaches swimmingNot on fileNot on fileNot on file Obstetrics History GravidaParaTermPretermABIABSABEctopicMultipleLivingLive Bafqgx725HgqcAijggxlJR Total LaborLabor//8rtOtycskFpzMtlePqjjKCRWlsB8I9NdbaPjsiKkawHind Last Filed Vital Signs Vital SignReadingTime TakenCommentsBlood Nxazgohy418/7509/27/2025 9:16 AM NEURODIAGNOSTIC TECHNICIAN Tzvnm959809/27/2025 9:13 AM GEEPkxllbiokih47.4 ??C (97.6 ??F)09/27/2025 9:13 AM CSTRespiratory Rkoa109203/30/2025 7:28 AM CDTOxygen Jhmmojtqaq623%09/27/2025 9:13 AM CSTInhaled Oxygen Concentration--Sqjfni52.8 kg (101 lb)03/30/2025 7:28 AM CDT Lcldow651.3 cm (5' 3.5)03/30/2025 7:28 AM CDTBody Mass Index17.61003/30/2025 7:28 AM CDT Plan of Treatment DateTypeDepartmentCare Team (Latest Contact Info)Qdizoafllar86/02/2026 2:00 PM CSTAncillary Procedure [facility] [address] [place] [address] 10/11/2025 1:00 PM CSTOffice Visit [facility] [address] [phone] [place] [address] [place], [place] [id number] 10/11/2025 2:30 PM CSTOffice Visit [facility] [address] [facility] [place] [address] Vicky Cooper DO [address] [place] [address] 11/17/2025 1:00 PM CSTOffice Visit [facility] [address] [facility] [address] [place] [address] Health MaintenanceDue DateLast DoneCommentsHepatitis C screening for age 18-79 1970RSV vaccine for adults or (1 - Risk 50-74 years 1-dose series)2002Medicare Wellness for age 65+2017Zoster (shingles) series for age 50+ (2 of 3)Tetanus sxxksus51, 12/09/1995Colonoscopy through age 7509/05/, 09/05/2016, 06/13/2011 (Completed outside of [facility]), Additional history existsCOVID-19 vaccine series (2024- season), 08/15/2021, 12/09/2020Influenza Vaccine (#1)/, 08/08/2022, 09/21/2019, Additional history existsDepression screening for age 12+, 01/10/2021, 01/09/2021, Additional history existsMammogram for age 40-07/08/2024, 07/03/2023, 04/25/2022, Additional history existsBMI (ht and wt on same day) for age 18+6003/30/2025, 03/23/2025, 06/28/2023, Additional history existsLipids for age 45-, 06/25/2024, 10/04/2017, Additional history existsPneumococcal series for age 50+Obtwtfufz50/16/2019, 02/24/2018DEXA/DXA scan for age 65+Hclgwpkjh34/02/2024, 05/29/2016, 10/22/2013, Additional history existsHepatitis B series for 19+Aged OutNo longer eligible based on patient's age to complete this topic Procedures Procedure NamePriorityDate/TimeAssociated DiagnosisCommentsLIPID PANEL W REFLEX MEASURED QHVMnsibwi72/17/2025 4:58 PM CDT Screening for cardiovascular condition XR DXA BONE DENSITY 2 SITES QNEEGDhtnonw09/02/2024 1:31 PM CDT Menopause XR MAMMO PHILIP BILAT VAODNGPvyekai82/02/2024 1:07 PM CDT Visit for screening mammogram PWXKDAETNAW71/30/2016 11:17 AM NEURODIAGNOSTIC TECHNICIAN from Last 3 Months or Most Recently Relevant to Health Maintenance Results * LIPID PANEL W REFLEX MEASURED LDL (03/23/2025 4:58 PM CDT)ComponentValueRef RangeTest MethodAnalysis TimePerformed AtPathologist SignatureCHOLESTEROL, YVNKB459<200 mg/dLStanceeHDL OFSNMOKHVYZ19> OR = 50 mg/dL StanceeTRIGLYCERIDES92<150 mg/dLStanceeLDL-XSKWSBUQXPJ07jz/dL (calc)StanceeComment: Reference range: <100 Desirable range <100 mg/dL for primary prevention; <70 mg/dL for patients with CHD or diabetic patients with > or = 2 CHD risk factors. LDL-C is now calculated using the Tello calculation, which is a validated novel method providing better accuracy than the Friedewald equation in the estimation of LDL-C. Kirk JOHNSON et al. LAURA. 2013;310(19): 9653-4946 (http://education.[employer]/faq/BJW651) CHOL/HDLC RATIO2.3<5.0 (calc)StanceMarianoN HDL NDBUQVEMSKF539 <130 mg/dL (calc)StanceeComment: For patients with diabetes plus 1 major ASCVD risk factor, treating to a non-HDL-C goal of <100 mg/dL (LDL-C of <70 mg/dL) is considered a therapeutic option. Specimen (Source)Anatomical Location / LateralityCollection Method / Volume Collection TimeReceived TimeBloodBLOOD SPECIMEN / Ryxxote7003/23/2025 4:58 PM CDT 03/23/2025 5:00 PM CDT Narrative [facility] - 03/24/2025 3:35 AM CDT FASTING:YES FASTING: YES Authorizing ProviderResult TypeResult StatusShivani Finley MDCHEMISTRY Final ResultPerforming OrganizationAddressCity/State/ZIP CodePhone Number [employer] [facility] [address] [place] [address], [facility] [address] [place] [address] * (ABNORMAL) XR DXA BONE DENSITY 2 SITES AXIAL (07/08/2024 1:31 PM CDT) Anatomical RegionLateralityModalitySpine, HIPS, HIPL, HIPROtherSpecimen (Source)Anatomical Location / LateralityCollection Method / VolumeCollection TimeReceived Time Impressions 07/08/2024 4:31 PM CDT Osteoporosis. RECOMMENDATIONS: The National Osteoporosis Foundation recommends pharmacologic treatment for patients with T-scores of -2.5 or less, patients with prior history of fragility fractures, or patients with 10-year probability of greater than 3% at hips or greater than 20% of suffering major osteoporotic fractures. Recommend continued optimization of calcium and vitamin D intake through dietary means and/or supplementation and regular exercise. Consider pharmacologic therapy for osteoporosis. Follow-up bone density reading in 2 years if therapy initiated to assess therapeutic efficacy. Samara Sanderson PA-C [facility] 07/08/2024 ?? Narrative 07/08/2024 4:31 PM CDT For Patients: Results are automatically released to your [employer] ([place]) account once available, in compliance with federal regulations. This means that you may see your results before your provider has had a chance to review them. Please allow 2-3 business days for your provider to comment on the results. XR DXA Bone Mineral Density (BMD) EXAM [facility] [address] [facility] [address] PATIENT NAME: Silvia Gutierrez DATE OF : 1950 EXAM DATE: 07/08/2024 REQUESTING PROVIDER: Shivani Finley MD GENDER AT : female HEIGHT: 5' 3 (06/28/2023) WEIGHT: ??101 lb 3.2 oz (06/25/2024) MENOPAUSAL STATUS: Postmenopausal RACE/ETHNICITY: White RISK FACTORS: Family History of Osteoporosis, Family History of Hip Fracture (parental), Weight < 127 lbs., and White Race CURRENT MEDICATION FOR BONE LOSS: NONE INDICATION: Follow-up of existing osteoporosis COMPARISON DATE(S): 2015 DXA scans are compared to prior studies for a patient only when the two (or more) studies were performed on the same scanner. It is not possible to compare data generated on one scanner to data from another because there are not standards in DXA equipment. This applies even if the two scanners are made by the same sponge press operator. PROCEDURE: Dual-energy x-ray absorptiometry performed with routine technique. Reporting is completed in the form of a T-score. The T-score represents the standard deviation from peak bone mass based on young healthy adult. A Z-score is used for diagnosis in premenopausal women, and for men under the age of 50. FINDINGS: RESULT LUMBAR SPINE L1-L3(L4) ??BMD: 0.927 g/cm2 T-Score: - 2.0 Z-Score: + 0.3 Change from prior in 2016: ??Increase 3.9%. RESULTS FEMUR Left femoral neck BMD: 0.649 g/cm2 T-Score: - 2.8 Z-Score: - 0.6 Change from prior in 2016: ??Increase 4.5%. Right femoral neck BMD: 0.598 g/cm2 T-Score: - 3.2 Z-Score: - 1.0 Change from prior in 2016: ??Increase 4.9%. Left hip BMD: 0.678 g/cm2 T-Score: - 2.6 Z-Score: - 0.6 Change from prior in 2016: ??Decrease 4.6%. Right hip BMD: 0.642 g/cm2 T-Score: - 2.9 Z-Score: - 0.9 Change from prior in 2016: ??Decrease 3.9%. WHO criteria: Normal: T-score at or above -1 SD Osteopenia: T-score between -1.1 and -2.4 SD Osteoporosis: T-score at or below -2.5 SD Authorizing ProviderResult TypeResult StatusShivani Finley MDDEXAFinal Result * XR MAMMO PHILIP BILAT SCREEN (07/08/2024 1:07 PM CDT)Anatomical RegionLaterality ModalityBREASTS, Breast Left, Breast RightBilateralMammographySpecimen (Source)Anatomical Location / LateralityCollection Method / VolumeCollection TimeReceived Time Impressions 07/08/2024 2:19 PM CDT There is no radiographic evidence for malignancy. Recommend annual mammograms. MAMMOGRAM ASSESSMENT: ??ACR 1 Negative PATIENTS: You will also receive a letter with your examination results in an easy to read format. ??If you have questions about your results, please contact your referring provider. Narrative 07/08/2024 2:19 PM CDT For Patients: As a result of the Century Cures Act, medical imaging exams and procedure reports are released immediately into your electronic medical record. You may view this report before your referring provider. If you have questions, please contact your health care provider. XR MAMMO PHILIP BILAT SCREEN [[id number]] CLINICAL HISTORY: ??This is an asymptomatic 73 y.o. patient. INDICATION FOR EXAM: Mammogram Screening. TECHNIQUE: CC & MLO views were obtained. This study was evaluated with the assistance of Computer-Aided Detection. Breast Tomosynthesis was used in interpretation. COMPARISON FILM: Yes 07/03/23 [facility] 04/25/22 [facility] FINDINGS: ??The breasts are extremely dense, which lowers the sensitivity of mammography. There are no dominant masses, suspicious micro calcifications or areas of architectural distortion. Authorizing ProviderResult TypeResult StatusShivani Finley MDMAMMOFinal Result * COLONOSCOPY (09/05/2016 11:17 AM NEURODIAGNOSTIC TECHNICIAN)Specimen (Source)Anatomical Location / LateralityCollection Method / VolumeCollection TimeReceived Time09/05/2016 11:17 AM NEURODIAGNOSTIC TECHNICIAN Narrative Transcriptions Kirk Watson MD - 09/05/2016 12:24 PM CST Patient Name: Silvia Gutierrez Procedure Date: 09/05/2016 Gender: Female Date of : 1950 Admit Type: Outpatient Procedure: Colonoscopy Proceduralist: Kirk Watson MD Indications/Pre-Op Diagnosis: Surveillance: Personal history ofadenomatous polyps on last colonoscopy 5 years ago Medications: Fentanyl 100 micrograms IV, Midazolam 3 mgIV, The level of sedation administered wasmoderate Procedure Description: The patient had risks, benefits and alternatives explained to andgave informed consent. The patient had a stable cardiopulmonary status and judged an adequate candidate for conscious sedation. The PCF-Q290AL [id number] was passed through the anus and advanced tothe cecum, identified by appendiceal orifice and ileocecal valve. The colonoscopy was somewhat difficult due to a tortuous colon.Successful completion of the procedure was aided by changing the patient to a supine position. The patient tolerated the procedure well. Thequality of the bowel preparation was good. The ileocecal valve, appendiceal orifice, and rectum were photographed. Complications: No immediate complications. Estimated Blood Loss & Specimen: Estimated blood loss: none. Specimen collected - None Findings: The perianal and digital rectal examinations were normal. The colon (entire examined portion) was significantly tortuous. Advancing the scope required changing the patient to a supineposition. The exam was otherwise without abnormality on direct and retroflexion views. Impressions/Post-Op Diagnosis: - Tortuous colon. - The examination was otherwise normal on direct and retroflexionviews. - No specimens collected. Recommendation: - Patient has a contact number available for emergencies. The signsand symptoms of potential delayed complications were discussed with the patient. Return to normal activities tomorrow. Written discharge instructions were provided to the patient. - Resume previous diet. - Continue present medications. - Await pathology results. Kirk Watson MD 09/05/2016 12:24:29 PM This report has been signed electronically. Note Initiated On: 09/05/2016 11:17 AM Procedure Code(s): --- Professional --- G0105, Colorectal cancer screening;colonoscopy on individual at high risk Diagnosis Code(s): --- Professional --- Z86.010, Personal history of colonicpolyps Q43.8, Other specified congenitalmalformations of intestine CPT copyright 2015 [employer]. All rights reserved. The codes documented in this report are preliminary and upon button machine operator reviewmay be revised to meet current compliance requirements. Scope In: 11:58:08 AM Scope Withdrawal Time 0 hours 8 minutes 26 seconds Scope Out: 12:16:54 PM Authorizing ProviderResult TypeResult StatusMarguy Watson MDPROCEDURE ORD Final Result from Last 3 Months or Most Recently Relevant to Health Maintenance Insurance Care Teams Team MemberRelationshipSpecialtyStart DateEnd Shivani Finley MD [address] [place] [address] PCP - GeneralFamily Practice03/02/16 [place] [address] [place] [address] PoovftybatnagTtyikxpnemqsh71/23/24
[2025-10-01 13:17] VITALS: BP 128/80; PULSE 81; RESP 18; TEMP 37.3; O2SAT 98; BMI 16.8
--- NOTE | 2025-10-01 14:11 | CRLHL7_ITS ---
For Patients: As a result of the Cures Act, medical imaging exams and procedure reports are released immediately into your electronic medical record. You may view this report before your referring provider. If you have questions, please contact your health care provider. Indication: Fall. Technique: Lumbar spine 3 views. Comparison: None. Findings: Slight levoconvex curvature of the lumbar spine. Diffuse decreased bone mineralization. No acute fracture. Grade 1 anterolisthesis of L5 on S1 secondary to facet arthrosis. Moderate to advanced intervertebral disc height loss at L4-5. Moderate to advanced multilevel bilateral lower lumbar facet arthrosis. Prior right inguinal hernia repair. No aggressive osseous lesion. Impression: No evidence of an acute bony abnormality. Moderate to advanced lumbar spondylosis at L4-5. Dictated by Jem Schwab MD @ 10/01/2025 2:39:49 PM (Electronically Signed)
--- NOTE | 2025-10-01 14:12 | ED_ITS ---
HPI - Back Pain/Injury General Chief Complaint: Back Injury/Pain Stated Complaint: Fall, lower back pain Time Seen by Provider: 10/01/25 14:03 History of Present Illness HPI Narrative: This 74-year-old female comes in with low back pain radiating down the backside of her right leg. She states that she fell about 4 days ago and since then has developed this pain which she states feels somewhat like prior sciatica pain that she has had. He does not report any other injury. She did contact Dr. Chapman in the spine clinic who recommended she come in for an x-ray. Related Data Home Medications ?Medication ?Instructions ?Recorded ?Confirmed lamotrigine 100 mg tablet 300 mg PO BID 05/16/2310/01 levetiracetam 500 mg tablet 500 mg PO 05/16/23 5 levothyroxine 50 mcg tablet 50 mcg PO DAILY 05/16/23 1 12/02/24 polyethylene glycol 3350 17 4 g PO QDAY 05/16/2308/19 gram/dose oral powder (Miralax) senna PO 05/16/23 08/19/25 trazodone 100 mg tablet 200 mg PO QPM PRN 05/16/23 1 12/02/24 aspirin 81 mg tablet,delayed 81 mg PO DAILY 08/19/25 1 12/02/24 release rosuvastatin 5 mg tablet 5 mg PO DAILY 08/19/2510/01 cyclobenzaprine 5 mg tablet 5 mg PO 3XD PRN 10/01/25 1 12/02/24 Previous Rx's ?Medication ?Instructions ?Recorded cyclobenzaprine 10 mg tablet 10 mg PO TID #15 tabs ketorolac 10 mg tablet 10 mg PO TID 5 days #15 tabs 10/01/25 methylprednisolone 4 mg tablets in See Rx Instructions PO .COMPLEX 10/01/25 a dose pack (Medrol (Luis)) #21 ea Allergies Allergy/AdvReac Type Severity Reaction Status Date / Time No Known Drug Allergies Allergy Verified 10/01/25 13:20 Review of Systems Status of ROS: Reports: 10 or more systems reviewed and unremarkable except as noted in History and below Narrative: Constitutional: No fevers, no weight gain or loss. Eyes: No discharge. No vision changes. HENT: No congestion, no sore throat, no ear pain. Cardiovascular: No chest pain, no palpitations. Respiratory: No shortness of breath, no wheezes, no cough. Gastrointestinal: No abdominal pain, no vomiting, no diarrhea. Genitourinary: No dysuria, no hematuria. Musculoskeletal: Normal range of motion. Low back pain radiating down the right leg as described above. Skin: No rashes, no pruritis. Neurological: No dizziness, weakness, sensory change, speech change. Endo/Heme/Allergies: No bruising or bleeding. No polydipsia. Pysch: no suicidality, no anxiety, no insomnia. All other systems reviewed and are negative. [facility] Medical History (Updated 10/01/25 @ 15:01 by Jj Fraser MD) Atherosclerotic heart disease of [place] coronary artery with other forms of angina pectoris ?I25.118 - Atherosclerotic heart disease of [place] coronary artery with other forms of angina pectoris (ICD-10) Trigger finger of right thumb ?M65.311 - Trigger thumb, right thumb (ICD-10) Pelvic floor dysfunction ?M62.89 - Other specified disorders of muscle (ICD-10) DDD (degenerative disc disease) IBS (irritable bowel syndrome) ?K58.9 - Irritable bowel syndrome, unspecified (ICD-10) Hypothyroidism ?E03.9 - Hypothyroidism, unspecified (ICD-10) Rosacea ?L71.9 - Rosacea, unspecified (ICD-10) Seizures ?R56.9 - Unspecified convulsions (ICD-10) Osteoporosis ?M81.0 - Age-related osteoporosis without current pathological fracture (ICD- 10) GERD (gastroesophageal reflux disease) ?K21.9 - Gastro-esophageal reflux disease without esophagitis (ICD-10) Foot pain, left ?M79.672 - Pain in left foot (ICD-10) Surgical History (Updated 08/18/25 @ 09:51 by Vera Leyva ~ [facility], [facility]) History of removal of cyst ?Z98.890 - Other specified postprocedural states (ICD-10) H/O hernia repair (10/19/14) ?Z98.890 - Other specified postprocedural states (ICD-10) ?Z87.19 - Personal history of other diseases of the digestive system (ICD-10) History of back surgery (05/06/14) ?Z98.890 - Other specified postprocedural states (ICD-10) History of appendectomy ?Z90.49 - Acquired absence of other specified parts of digestive tract (ICD- 10) Exam Narrative: Exam Narrative: Constitutional: Well-developed, well-nourished, no acute distress. HEENT: Normocephalic, atraumatic. Neck: Normal range of motion. Nontender. Supple. Heart: Intact distal pulses. Lungs: No chest discomfort. No wheezes, rhonchi, or rales. Abdomen: Nontender. Back: Diffuse pain in the low back. No midline tenderness. Pain is radiating down posterior aspect of the right leg toward the knee. Extremities: Normal range of motion. No injury. Skin: Intact. No rash. Warm. No erythema or pallor. Neurologic: No altered sensation. No weakness. Alert and oriented. Psychiatric: No suicidality. No anxiety or depression. No insomnia. Nursing notes and vitals signs are reviewed. Const: Vital Signs, click to edit/add: Vital Signs - 24 hr 10/01/25 13:17 Temperature 99.1 F Pulse Rate [Pulse Oximeter] 81 Respiratory Rate 18 Blood Pressure [Ri ght Upper Arm] 128/80 Pulse Oximetry 98 Oxygen Delivery Me thod Room Air Course Vital Signs Vital signs: Initial Vital Signs Temperature 99.1 F 10/01/25 13:17 Temperature Source Temporal Artery Scan 10/01/25 13:17 Pulse Rate 81 10/01/25 13:17 Pulse Rhythm Regular 10/01/25 13:17 Pulse Strength 3+ Normal 10/01/25 13:17 Respiratory Rate 18 10/01/25 13:17 Blood Pressure 128/80 10/01/25 13:17 Blood Pressure Mean 96 10/01/25 13:17 Blood Pressure Position Sitting 10/01/25 13:17 Pulse Oximetry 98 10/01/25 13:17 Oxygen Delivery Method Room Air 10/01/25 13:17 Vital Signs Temperature 99.1 F 10/01/25 13:17 Pulse Rate 81 10/01/25 13:17 Respiratory Rate 18 10/01/25 13:17 Blood Pressure 128/80 10/01/25 13:17 Pulse Oximetry 98 10/01/25 13:17 Oxygen Delivery Method Room Air 10/01/25 13:17 Temperature 99.1 F 10/01/25 13:17 Pulse Rate 81 10/01/25 13:17 Respiratory Rate 18 10/01/25 13:17 Blood Pressure 128/80 10/01/25 13:17 Pulse Oximetry 98 10/01/25 13:17 Oxygen Delivery Method Room Air 10/01/25 13:17 MDM - Back Pain/Injury MDM Narrative Medical decision making narrative: This patient fell a few days ago and has since then developed pain in her low back radiating down the right leg to about her knee. I did obtain x-ray of her lumbar spine which shows no acute findings. She does have spondylosis which is not a new diagnosis for her. She is in touch with our spine clinic. I advised her to follow-up there as needed. I did provide prescriptions for Medrol Dosepak, Flexeril, and Toradol. Imaging Data XR Lumbar Spine: Radiologist's impression: No evidence of an acute bony abnormality. Moderate to advanced lumbar spondylosis at L4-5. Discharge Plan Discharge Clinical Impression: Sciatica Patient Disposition: Home, Self-Care Condition: Stable Additional Instructions: Take medications as needed and directed. Follow up with spine clinic for ongoing management or return if worsening. Spine clinic can be contacted by dialing [phone]. Prescriptions: New cyclobenzaprine 10 mg tablet 10 mg PO TID Qty: 15 0RF ketorolac 10 mg tablet 10 mg PO TID 5 Days Qty: 15 0RF methylprednisolone [Medrol (Luis)] 4 mg tablets,dose pack See Rx Instructions .ROUTE .COMPLEX Qty: 21 0RF Rx Instructions: orally per package directions No Action aspirin 81 mg tablet,delayed release (DR/EC) 81 mg PO DAILY rosuvastatin 5 mg tablet 5 mg PO DAILY trazodone 100 mg tablet 200 mg PO QPM PRN levetiracetam 500 mg tablet 500 mg PO lamotrigine 100 mg tablet 300 mg PO BID levothyroxine 50 mcg tablet 50 mcg PO DAILY senna PO polyethylene glycol 3350 [Miralax] 17 gram/dose powder 4 g PO QDAY cyclobenzaprine 5 mg tablet 5 mg PO 3XD PRN Follow Up/Referrals: Shivani Finley MD [Primary Care Provider, Family Practice] Stand Alone Forms: EPIS Info Instructions
[2025-10-01 15:08] VITALS: BP 114/64; PULSE 70; RESP 16; O2SAT 99
== END 2025-10-01 15:11 | disposition home or self-care (01) ==
PROVIDERS: Emergency Provider Emergency Medicine Emergency Medical Services; PCP Family Medicine
DX: M54.41 Lumbago with sciatica, right side (principal)
CPT/HCPCS: 72100; 99283; 99284